=== PATIENT | female | born 1995 | race African-American/Black ===

== ENCOUNTER 2020-12-26 13:02 | Emergency (ER) | payer OTHER ==
[~2020-12-26] VITALS: Ht 157.5 cm; Wt 40.0 kg
[2020-12-26] MEDS ORDERED: ACETAMINOPHEN 325 MG TABLET. PO ONE (13:30)
[2020-12-26 14:28] LABS: BILIRUBIN,URINE NEGATIVE (NEG); CLARITY,URINE CLOUDY; COLOR,URINE YELLOW; NITRITE,URINE NEGATIVE (NEG); PH,URINE 6.5 (<5.0-8.0); PROTEIN,URINE >=300 mg/dL (NEG-TRACE)
[2020-12-26 14:54] LABS: WBC,URINE TNTC /HPF (0-4)
[2020-12-26 14:56] LABS: BACTERIA,URINE MODERATE /HPF (0-FEW); RBC,URINE >40 /HPF (0-2)
[2020-12-26] MEDS ORDERED: CEPH500T PO (15:07)
[2020-12-26] MEDS ORDERED: PHEN-318 PO (15:07)
--- NOTE | 2020-12-26 15:08 | ED.ADGEN ---
Past Medical History Past Medical History: No Pertinent History Past Surgical History: No Surgical History Smoking Status: Never Smoker Alcohol Use: Occasionally Drug Use: None General Adult EDM: Chief Complaint: PAIN ON URINATION HPI: HPI: Patient is a 25 year old AA female who presents emergency department with complaints of dysuria, increased urinary frequency, and urgency since yesterday. She denies any irregular vaginal discharge or odor. Patient states it bee and stings when she urinates. She currently rates her pain a 5 out of 10 on the pain scale, she denies any alleviating factors. Patient denies any nausea, vomiting, diarrhea, fever, back pain, chest pain, shortness of breath, body aches, fatigue. She currently rates her pain a 5 out of 10 on pain scale, she denies any alleviating factors, the pain is worse with urination. Review of Systems: Review of Systems: Complete ROS is negative unless otherwise noted in HPI. Current Medications: Current Medications Medications (Trade) Dose Ordered Sig/Thuy Start Time Stop Time Status Last Admin Dose Admin Acetaminophen (Tylenol) 650 mg 1X ONCE 12/26/20 13:30 12/26/20 14:47 DC 12/26/20 14:18 650 MG Allergies: Allergies: Allergies Coded Allergies Type Severity Reaction Last Updated Verified No Known Drug Allergies 12/26/20 No Physical Exam: PE: See Above Constitutional: Well developed, well nourished, no acute distress, non-toxic appearance. [] HENT: Normocephalic, atraumatic, bilateral external ears normal, nose normal. [] Eyes: PERRLA, EOMI, conjunctiva normal, no discharge. [] Neck: Normal range of motion, no stridor. [] Cardiovascular:Heart rate regular rhythm Lungs & Thorax: Respirations even and unlabored, no retractions, no respiratory distress Abdomen: soft, no tenderness Skin: Warm, dry, no erythema, no rash. [] Extremities: No cyanosis, ROM intact, no edema. [] Neurologic: Alert and oriented X 3, no focal deficits noted. [] Psychologic: Affect normal, judgement normal, mood normal. [] Current Patient Data: Labs: Laboratory Tests Test 12/26/20 14:15 12/26/20 14:17 Urine Collection Type Unknown Urine Color Yellow Urine Clarity Cloudy Urine pH 6.5 (<5.0-8.0) Urine Specific Bergoo 1.025 (1.000-1.030) Urine Protein >=300 mg/dL (NEG-TRACE) Urine Glucose (UA) Negative mg/dL (NEG) Urine Ketones (Stick) Negative mg/dL (NEG) Urine Blood Large (NEG) Urine Nitrite Negative (NEG) Urine Bilirubin Negative (NEG) Urine Urobilinogen Dipstick 1.0 mg/dL (0.2 mg/dL) Urine Leukocyte Esterase Moderate (NEG) Urine RBC >40 /HPF (0-2) Urine WBC Tntc /HPF (0-4) Urine Squamous Epithelial Cells Few /LPF Urine Bacteria Moderate /HPF (0-FEW) Urine Mucus Mod /LPF POC Urine HCG, Qualitative Hcg negative (Negative) EKG: EKG: [] Heart Score: C/O Chest Pain: No Radiology/Procedures: Radiology/Procedures: [] Course & Med Decision Making: Course & Med Decision Making Pertinent Labs and Imaging studies reviewed. (See chart for details) [] Dragon Disclaimer: Dragon Disclaimer: This electronic medical record was generated, in whole or in part, using a voice recognition dictation system. Departure Departure Impression: Primary Impression: UTI (urinary tract infection) Additional Impression: Dysuria Disposition: HOME / SELF CARE / HOMELESS Condition: STABLE Referrals: NO PCP (PCP) Patient Instructions: Urinary Tract Infection, [id number] Additional Instructions: Fill prescription(s) and take as directed. Avoid bladder irritants such as caffeine, carbonation, and spicy foods. Increase clear fluids. Follow up with your primary care doctor in 1-2 days, return to the ER if symptoms worsen or fever develops. [facility] [address] [place] [address] [facility] [address] [place] [address] [facility] [address] [place] [address] [facility] [address] [place] [address] [facility] [address] [place] [address] [facility] [address] [place] [address] [facility] [address] [place] [address] [employer] [facility] [address] [place] [address] [facility] [address] [place] [address] [facility] [address] [place] [address] Scripts Phenazopyridine Hcl (PYRIDIUM) 200 Mg Tablet 1 TAB PO TID for urinary discomfort for 3 Days, #9 TAB 0 Refills Prov: SANJU [employer] 12/26/20 Cephalexin (CEPHALEXIN) 500 Mg Tablet 1 TAB PO BID for 7 Days, #14 TAB 0 Refills Prov: [employer] 12/26/20 Problem Qualifiers Primary Impression: UTI (urinary tract infection) Urinary tract infection type: site unspecified Hematuria presence: without hematuria Qualified Codes: N39.0 - Urinary tract infection, site not specified [employer]JU [employer] Dec 26, 2020 15:08
[2020-12-26 15:11] VITALS: BP 110/64
== END 2020-12-26 15:15 | disposition home or self-care (01) ==
LOC: ER 13:02
DX: N39.0 Urinary tract infection, site not specified (principal)
CPT/HCPCS: 81001; 81025; 87086; 99283

== ENCOUNTER 2021-03-06 17:45 | Emergency (ER) | payer OTHER ==
[~2021-03-06] VITALS: Ht 149.9 cm; Wt 39.5 kg
[~2021-03-06 17:45] MED LIST: CEPH500T PO; PHEN-318 PO
--- NOTE | 2021-03-06 19:09 | PHYS DOC ---
Past Medical History Past Medical History: No Pertinent History Additional Past Medical Histor: TREMOR Past Surgical History: No Surgical History Smoking Status: Never Smoker Alcohol Use: Occasionally Drug Use: None General Adult EDM: Chief Complaint: VAGINAL PROBLEM HPI: HPI: Patient is a 25 year old female who presents with vaginal pain and dysuria for the past week. States that pain started shortly after intercourse. States it feels similar to when she had a vaginal tear after a . A couple days began having dysuria. States that she developed a rash that were small circular lesions externally. She put a ointment on it, and it has slightly improved. Denies history of herpes. Only STI history is chlamydia 3 years ago with a different partner. States that she was completely treated. She denies any new vaginal discharge. No vaginal bleeding. She does not use any form of contraception. Currently sexually active with one partner. 2 partners in the past year. Review of Systems: Review of Systems: Constitutional: Denies fever or chills. [] Eyes: Denies change in visual acuity. [] HENT: Denies nasal congestion or sore throat. [] Respiratory: Denies cough or shortness of breath. [] Cardiovascular: Denies chest pain or edema. [] GI: Denies abdominal pain, nausea, vomiting, bloody stools or diarrhea. [] : Reports dysuria and vaginal discomfort. [] Musculoskeletal: Denies back pain or joint pain. [] Integument: Denies rash. [] Neurologic: Denies headache, focal weakness or sensory changes. [] Endocrine: Denies polyuria or polydipsia. [] Lymphatic: Denies swollen glands. [] Psychiatric: Denies depression or anxiety. [] Heart Score: C/O Chest Pain: No Risk Factors: Risk Factors: DM, Current or recent (<one month) smoker, HTN, HLP, family history of CAD, obesity. Risk Scores: Score 0 - 3: 2.5% MACE over next 6 weeks - Discharge Home Score 4 - 6: 20.3% MACE over next 6 weeks - Admit for Clinical Observation Score 7 - 10: 72.7% MACE over next 6 weeks - Early Invasive Strategies Allergies: Allergies: Allergies Coded Allergies Type Severity Reaction Last Updated Verified No Known Drug Allergies 12/26/20 No Physical Exam: PE: Constitutional: Well developed, well nourished, no acute distress, non-toxic appearance. [] HENT: Normocephalic, atraumatic, bilateral external ears normal, oropharynx moist, no oral exudates, nose normal. [] Eyes: PERRLA, EOMI, conjunctiva normal, no discharge. [] Neck: Normal range of motion, no tenderness, supple, no stridor. [] Cardiovascular:Heart rate regular rhythm, no murmur [] Lungs & Thorax: Bilateral breath sounds clear to auscultation [] Abdomen: Bowel sounds normal, soft, no tenderness, no masses, no pulsatile masses. [] : Right labia majora and vaginally internally show vesicles on an erythematous base. Speculum exam with green-yellow discharge. No evidence of vaginal tears or cervical abnormality. Skin: Warm, dry, no erythema, no rash. [] Back: No tenderness, no CVA tenderness. [] Extremities: No tenderness, no cyanosis, no clubbing, ROM intact, no edema. [] Neurologic: Alert and oriented X 3, normal motor function, normal sensory function, no focal deficits noted. [] Psychologic: Affect normal, judgement normal, mood normal. [] Current Patient Data: Vital Signs: Vital Signs Date Time Temp Pulse Resp B/P (MAP) Pulse Ox O2 Delivery O2 Flow Rate FiO2 03/06/21 18:32 98.5 100 16 117/71 100 Room Air 98.5 EKG: EKG: [] Radiology/Procedures: Radiology/Procedures: [] Course & Med Decision Making: Course & Med Decision Making Pertinent Labs and Imaging studies reviewed. (See chart for details) Patient 25-year-old female who presents with a sensation of a tear in her vagina as well as genital rash. Rash consistent with herpes. This is a new diagnosis for the patient. Will treat with valacyclovir. Provided with counseling regarding this lifelong diagnosis. Asked to abstain from sexual intercourse until her outbreak has gone away and to abstain from sexual intercourse in the future when she has outbreaks. She will tell her current partner when she gets home. We are testing for gonorrhea, chlamydia, She would prefer to defer treatment for this at this time. Discussed HIV testing which she is interested in. She will follow up with her PCP to get this testing done. Wet prep shows evidence of BV. Will treat with flagyl. UA without signs of infection. hCG negative. Polo Disclaimer: Polo Disclaimer: This electronic medical record was generated, in whole or in part, using a voice recognition dictation system. Departure Departure Impression: Primary Impression: Genital herpes Additional Impression: Bacterial vaginosis Disposition: HOME / SELF CARE / HOMELESS Condition: STABLE Referrals: NO PCP (PCP) Patient Instructions: Bacterial Vaginosis, Genital Herpes Additional Instructions: Please take valacyclovir as directed for 10 days. Please take metronidazole as directed for 7 days. Drinking with metronidazole can make you feel very ill. Please abstain from alcohol use. Please follow-up with your primary care doctor to discuss HIV testing. Please abstain from sexual intercourse until your rash has healed completely. If you have a recurrent outbreak you may need reviewed current dose of valacyclovir. If you have an outbreak please abstain from sexual activity in the future as well. Please inform your partner of this new diagnosis Scripts Metronidazole (METRONIDAZOLE) 500 Mg Tablet 1 TAB PO BID for 7 Days, #14 TAB 0 Refills Prov: MILA BALLESTEROS MD 03/06/21 Valacyclovir Hcl (VALACYCLOVIR) 1,000 Mg Tablet 1 TAB PO BID for 10 Days, #20 TAB 3 Refills Prov: MILA BALLESTEROS MD 03/06/21 MILA BALLESTEROS MD Mar 06, 2021 19:09
[2021-03-06 19:18] LABS: BILIRUBIN,URINE NEGATIVE (NEG); CLARITY,URINE CLOUDY; COLOR,URINE YELLOW; NITRITE,URINE NEGATIVE (NEG); PROTEIN,URINE NEGATIVE (NEG-TRACE)
[2021-03-06 19:25] LABS: BACTERIA,URINE MOD /HPF (0-FEW)
[2021-03-06 19:26] LABS: RBC,URINE OCC /HPF (0-2)
[2021-03-06] MEDS ORDERED: VALA10008 PO (19:39)
[2021-03-06] MEDS ORDERED: METR-34 PO (19:56)
[2021-03-06 20:00] VITALS: BP 121/71
[2021-03-08 21:08] LABS: GC PROBE Negative (Negative)
== END 2021-03-06 20:20 | disposition home or self-care (01) ==
LOC: ER 17:45
DX: B00.9 Herpesviral infection, unspecified (principal); N76.0 Acute vaginitis; B96.89 Other specified bacterial agents as the cause of diseases classified elsewhere
CPT/HCPCS: 81001; 81025; 87491; 87591; 99284; Q0111

== ENCOUNTER 2021-04-08 21:14 | Emergency (ER) | payer OTHER ==
[~2021-04-08] VITALS: Ht 152.4 cm; Wt 40.9 kg
[~2021-04-08 21:14] MED LIST changes: +METR-34 PO; +VALA10008 PO
--- NOTE | 2021-04-08 21:30 | PHYS DOC ---
Past Medical History Past Medical History: No Pertinent History Additional Past Medical Histor: TREMOR Past Surgical History: No Surgical History Smoking Status: Never Smoker Alcohol Use: Occasionally Drug Use: None General Adult EDM: Chief Complaint: FINGER INJURY HPI: HPI: Patient is a 25 year old female patient presenting to the ED today with mild intermittent pain on the left stump that began this evening after she slammed her left thumb in a car door. Patient is right-handed. Patient states the pain is worse on touching the thumb. Patient denies anything specifically relieving the pain. Review of Systems: Review of Systems: Constitutional: Denies fever or chills. [] Musculoskeletal: Reports left arm pain Integument: Denies rash. [] Neurologic: Denies headache, focal weakness or sensory changes. [] Psychiatric: Denies depression or anxiety. [] Heart Score: C/O Chest Pain: N/A Risk Factors: Risk Factors: DM, Current or recent (<one month) smoker, HTN, HLP, family hi story of CAD, obesity. Risk Scores: Score 0 - 3: 2.5% MACE over next 6 weeks - Discharge Home Score 4 - 6: 20.3% MACE over next 6 weeks - Admit for Clinical Observation Score 7 - 10: 72.7% MACE over next 6 weeks - Early Invasive Strategies Allergies: Allergies: Allergies Coded Allergies Type Severity Reaction Last Updated Verified No Known Drug Allergies 12/26/20 No Physical Exam: PE: Constitutional: Well developed, well nourished, no acute distress, non-toxic appearance. [] Skin: Warm, dry, no erythema, no rash. [] Back: No tenderness, no CVA tenderness. [] Extremities: Left thumb with no obvious deformity. Bruising noted on the medial and lateral aspect of the thumb. Tenderness on the distal end of the thumb. Full range of motion to the left thumb. Adequate radial sensation to the left thumb. +2 left radial pulse. Cap refill less than 2 seconds to left thumb. Neurologic: Alert and oriented X 3, normal motor function, normal sensory function, no focal deficits noted. [] Psychologic: Affect normal, judgement normal, mood normal. [] EKG: EKG: [] Radiology/Procedures: Radiology/Procedures: [] Course & Med Decision Making: Course & Med Decision Making Pertinent Labs and Imaging studies reviewed. (See chart for details) This a 25-year-old female patient presenting to the ED today with left thumb pain after she slammed her left thumb in a car door accidentally. Left thumb x- rays are negative for any acute findings. Finger splint applied to the left thumb by the ED RN, neurovascular exam done by the RN is normal. Ice elevation encouraged. Follow-up with Ortho in 1 week if pain continues. OTC pain relievers. Dragon Disclaimer: Dragon Disclaimer: This electronic medical record was generated, in whole or in part, using a voice recognition dictation system. Departure Departure Impression: Primary Impression: Contusion of left thumb Qualified Codes: S60.012A - Contusion of left thumb without damage to nail, initial encounter Disposition: HOME / SELF CARE / HOMELESS Condition: STABLE Referrals: UNKNOWN PCP NAME (PCP) AZAM REYES DO Follow-up in 1 week if pain persist Patient Instructions: Contusion, [id number] Additional Instructions: You have left thumb contusion. Try to ice and elevate your left thumb. You can take [id number] pain relievers as needed. Consider following up with the provided orthopedic doctor in 1 week if pain persist JOSE PRADO APRN Apr 08, 2021 21:30
[2021-04-08 22:49] VITALS: BP 132/94
--- NOTE | 2021-04-09 00:58 | RAD ---
Three-view left thumb dated 04/08/2021. No comparison available. CLINICAL INDICATION: Pain. FINDINGS: 3 views left thumb show normal bony alignment. No displaced fracture. No periostitis or bone destruct ion. No acute osseous or articular abnormality. IMPRESSION: No acute radiographic abnormality. Electronically signed by: Segun Kelly MD (04/09/2021 12:56 AM) ARMANDO
== END 2021-04-08 23:22 | disposition home or self-care (01) ==
LOC: ER 21:14
DX: S60.012A Contusion of left thumb without damage to nail, initial encounter (principal); W23.0XXA Caught, crushed, jammed, or pinched between moving objects, initial encounter; Y93.89 Activity, other specified; Y92.89 Other specified places as the place of occurrence of the external cause; Y99.8 Other external cause status
CPT/HCPCS: 29125; 73140; 81025; 99283